=== PATIENT | female | born 1940 | race Two or more races ===

== ENCOUNTER 2018-08-24 14:09 | Outpatient (CLI) | payer OTHER | END 2018-08-24 14:39 | disposition home or self-care (01) | LOC: MRI 14:09 | DX: M54.2 Cervicalgia (principal); M25.511 Pain in right shoulder; M75.41 Impingement syndrome of right shoulder | CPT/HCPCS: 72141; 73221 ==

== ENCOUNTER 2019-07-21 09:22 | Emergency (ER) | payer OTHER ==
[~2019-07-21] VITALS: Ht 165.1 cm; Wt 70.3 kg
== END 2019-07-21 11:58 | disposition home or self-care (01) ==
LOC: ER 09:22
DX: J06.9 Acute upper respiratory infection, unspecified (principal)

== ENCOUNTER 2020-03-20 07:53 | Outpatient (CLI) | payer OTHER | END 2020-03-20 07:54 | disposition home or self-care (01) | LOC: NUCLEAR 07:53 | PROVIDERS: ATTEND Internal Medicine Hematology & Oncology | DX: C50.411 Malignant neoplasm of upper-outer quadrant of right female breast (principal); C79.51 Secondary malignant neoplasm of bone | CPT/HCPCS: 78306; A9503 ==

== ENCOUNTER 2021-05-19 11:47 | Outpatient (CLI) | payer OTHER | END 2021-05-19 11:56 | disposition home or self-care (01) | LOC: RAD 11:47 | PROVIDERS: ATTEND Internal Medicine Cardiovascular Disease | DX: M77.31 Calcaneal spur, right foot (principal); M12.88 Other specific arthropathies, not elsewhere classified, other specified site ==

== ENCOUNTER 2021-12-22 14:58 | Inpatient (IN) | payer OTHER ==
[~2021-12-22] VITALS: Ht 165.1 cm; Wt 65.8 kg
[2021-12-22] MEDS ORDERED: COZAAR25 MG PO (15:10)
[2021-12-23] MEDS ORDERED: ANASTROZOLE1 MG (10:07)
== END 2021-12-26 15:30 | DRG 522 ==
LOC: ER 14:58 → SURG 21:58
PROVIDERS: Orthopaedic Surgery; ADMIT Internal Medicine; ATTEND Internal Medicine
PROC: 0SRS0JZ Replacement of Left Hip Joint, Femoral Surface with Synthetic Substitute, Open Approach (ICD-10-PCS; principal; 2021-12-23 11:00)
DX: S72.002A Fracture of unspecified part of neck of left femur, initial encounter for closed fracture (principal); M16.12 Unilateral primary osteoarthritis, left hip; W10.1XXA Fall (on)(from) sidewalk curb, initial encounter; Y93.01 Activity, walking, marching and hiking; Y92.480 Sidewalk as the place of occurrence of the external cause; I10 Essential (primary) hypertension; Z20.822 Contact with and (suspected) exposure to COVID-19

== ENCOUNTER 2022-03-30 10:50 | Outpatient (CLI) | payer OTHER ==
[~2022-03-30 10:50] MED LIST: ANASTROZOLE1 MG; COZAAR25 MG PO
== END 2022-03-30 11:00 | disposition home or self-care (01) ==
LOC: NUCLEAR 10:50
PROVIDERS: ATTEND Orthopaedic Surgery
DX: M81.0 Age-related osteoporosis without current pathological fracture (principal)

== ENCOUNTER → 2022-03-31 08:30 | Outpatient (CLI) | payer OTHER | END | disposition home or self-care (01) | LOC: LAB 08:30 | PROVIDERS: ATTEND Orthopaedic Surgery | DX: E55.9 Vitamin D deficiency, unspecified (principal); M85.9 Disorder of bone density and structure, unspecified; E56.1 Deficiency of vitamin K; E21.3 Hyperparathyroidism, unspecified; E88.9 Metabolic disorder, unspecified; M81.8 Other osteoporosis without current pathological fracture ==

== ENCOUNTER 2022-11-02 11:05 | Outpatient (CLI) | payer OTHER | END 2022-11-02 11:13 | disposition home or self-care (01) | LOC: RAD 11:05 | PROVIDERS: ATTEND Orthopaedic Surgery | DX: Z96.642 Presence of left artificial hip joint (principal); M25.551 Pain in right hip ==

== ENCOUNTER → 2023-05-07 | Outpatient (CLI) | payer OTHER | END | disposition home or self-care (01) | LOC: MRI 09:39 | PROVIDERS: ATTEND Internal Medicine Hematology & Oncology | DX: M25.511 Pain in right shoulder (principal) | CPT/HCPCS: 73221 ==

== ENCOUNTER 2023-05-18 15:06 | Outpatient (CLI) | payer OTHER | END 2023-05-18 15:09 | disposition home or self-care (01) | LOC: RAD 15:06 | PROVIDERS: ATTEND Internal Medicine Hematology & Oncology | DX: M79.604 Pain in right leg (principal); M79.605 Pain in left leg ==

== ENCOUNTER 2024-03-30 09:53 | Outpatient (CLI) | payer OTHER | END 2024-03-30 10:12 | disposition home or self-care (01) | LOC: MRI 09:53 | DX: M51.17 Intervertebral disc disorders with radiculopathy, lumbosacral region (principal) | CPT/HCPCS: 72148 ==

== ENCOUNTER 2024-03-31 12:57 | Outpatient (CLI) | payer OTHER | END 2024-03-31 12:59 | disposition home or self-care (01) | LOC: NUCLEAR 12:57 | PROVIDERS: ATTEND Internal Medicine Hematology & Oncology | DX: M81.0 Age-related osteoporosis without current pathological fracture (principal) ==

== ENCOUNTER → 2024-04-06 09:33 | Outpatient (CLI) | payer OTHER ==
[2024-04-06 11:19] LABS: ALBUMIN 3.8 gm/dL (3.4-5.0); BILIRUBIN TOTAL 0.41 mg/dL (0.3-1.2); CALCIUM 8.8 mg/dL (8.5-10.1); CREATININE SERUM 0.81 mg/dL (0.55-1.02); GFR 67.86; GLOBULINA 3.3 G/DL (2.4-3.5); PHOSPHOROUS 2.9 mg/dL (2.5-4.9); POTASSIUM 4.11 mEq/L (3.5-5.1); TOTAL PROTEIN 7.1 gm/dL (6.4-8.2)
[2024-04-07 15:06] LABS: CALCIUM IONIZED 4.9 mg/dL (4.5-5.6)
[2024-04-10 19:05] LABS: VITAMIN K 1.15 ng/mL (0.10-2.20)
== END | disposition home or self-care (01) ==
LOC: LAB 09:33
PROVIDERS: ATTEND Orthopaedic Surgery
DX: E55.9 Vitamin D deficiency, unspecified (principal); M85.9 Disorder of bone density and structure, unspecified; E56.1 Deficiency of vitamin K; E21.3 Hyperparathyroidism, unspecified; D68.8 Other specified coagulation defects; M81.8 Other osteoporosis without current pathological fracture

== ENCOUNTER 2024-08-16 14:22 | Outpatient (CLI) | payer OTHER | END 2024-08-16 14:25 | disposition home or self-care (01) | LOC: MRI 14:22 | DX: M50.122 Cervical disc disorder at C5-C6 level with radiculopathy (principal) | CPT/HCPCS: 72141 ==

== ENCOUNTER 2024-10-02 10:47 | Outpatient (CLI) | payer OTHER | END 2024-10-02 10:58 | disposition home or self-care (01) | LOC: MRI 10:47 | PROVIDERS: ATTEND Orthopaedic Surgery | DX: M25.511 Pain in right shoulder (principal); M75.121 Complete rotator cuff tear or rupture of right shoulder, not specified as traumatic | CPT/HCPCS: 73221 ==